=== PATIENT | female | born 1945 | race Caucasian/White ===

== ENCOUNTER 2016-11-02 04:07 | Inpatient (IN) ==
[2016-11-02] MEDS ORDERED: HYDROcodone/CHLORPHENIRAMINE ER 5 ML UDCUP PO ONE ×2 (04:55→05:48)
[2016-11-02 05:19] LABS: Basophils % 0.3 % (0.0-0.8); Eosinophils # 0.5 10*3/uL (0.0-0.87); Eosinophils % 3.6 % (0.00-10.9); Hematocrit 40.7 VOL% (35.7-47.0); Immature Granulocytes % 0.5 %; Immature Granulocytes Absolute 0.06 #; Lymphocytes # 1.8 10*3/uL (1.4-4.0); Lymphocytes % 14.6 % (21.3-54.2); Mean Corpuscular HGB Conc 34.4 GM/DL (32-36); Mean Corpuscular Hemoglobin 30 PG (27-34); Mean Platelet Volume 10.4 FL (9.6-12.0); Monocytes # 1.5 10*3/uL (0.11-0.8); Monocytes % 12.1 % (1.7-12.7); Neutrophils # 8.6 10*3/uL (1.4-7.4); Neutrophils % 68.9 % (38.7-73.9); Platelet Count 306 T/CUMM (130-400); Red Blood Count 4.68 MC/CUMM (3.8-5.5); Red Cell Distribution Width 11.9 % (9.3-17.3); White Blood Count 12.5 T/CUMM (4-12)
[2016-11-02 05:35] LABS: Bilirubin,Total 0.4 MG/DL (0.2-1.0); Calcium 10.5 MG/DL (8.5-10.1); Osmolality,Calculated 283.4 MOS/KG (273-304); Potassium 3.8 MMOL/L (3.5-5.1); Total Protein 7.2 G/DL (6.4-8.3)
[2016-11-02] MEDS ORDERED: cefTRIAXone 1,000 MG in SODIUM CHLORIDE 0.9% 100 ML IV STA (05:43)
--- NOTE | 2016-11-02 05:45 | Emergency Department Note ---
IYogesh Gwan, am scribing for, and in the presence of, Chula Bright DO 04:55 . IDeangelo Debra, DO, personally performed the services described in this documentation, ascribed by Marcello Zuñiga in my presence, and it is both accurate and complete [id number] . Arrival - Arrival Chief Complaint: Psychiatric Stated Complaint: not able to sleep ED Nursing Triage Note: pt states that she has had uri symptoms since thu. came to er thursday and was diagnosed with pneumonia and prescribed levaquin. pt states that she has not slept for 3-4 nights. pt states that she was wanting to hurt herself last night. states "i kept thinking about people" pt denies having a suicide plan. pt states that she has had suicidal ideations before when she was taking actos. Mode of Arrival: Wheelchair Limitations: No Limitations Source: Patient, Old Records Reviewed, RN Notes Reviewed - History of Present Illness HPI Narrative: Patient is a 71 y/o female who presents to the ED for further evaluation of inability to sleep. Patient confirmed that she was last seen in ED 2 days ago and was dx with pneumonia and prescribed Levaquin. She continued to note that she has not been to sleep in 3-4 nights. Patient then stated that she had suicidal ideation last night and that she "keeps thinking about people". She denies having a suicidal plan. She then said that this has happened before in the past when she took Levaquin. No other problems/complaints reported in ED. Onset (ago): day(s) Consistency: constant Severity: moderate Date of Last Menstrual Period: hysterectomy Allergies/Adverse Reactions: Allergies Allergy/AdvReac Type Severity Reaction Status Date / Time adhesive Allergy Redness of Verified 11/20/15 07:11 Skin lorazepam [From Ativan] Allergy ANAPHYLAXIS Verified 11/20/15 07:11 Shrimp Allergy Diarrhea Verified 11/20/15 07:11 pioglitazone [From Actos] AdvReac Unknown/Unable Verified 11/02/16 04:22 to obtain Home Medications: Home Medications Medication Instructions Recorded Confirmed Type Aspirin [Ecotrin] 81 mg PO DAILY 11/15/15 11/02/16 History Azelastine HCl [Azelastine 0.15% 1 spray BOTH NARES BID 11/15/15 11/02/16 History Nasal [place]] Carvedilol [Coreg] 25 mg PO BID 11/15/15 11/02/16 History Cholecalciferol (Vitamin D3) 2,000 unit PO DAILY 11/15/15 11/02/16 History [Vitamin D3] Dorzolamide/Timolol Oph Soln 1 drop BOTH EYES BID 11/15/15 11/02/16 History [Cosopt] Furosemide Tab [Lasix Tab] 80 mg PO BID 11/15/15 11/02/16 History HYDROcodone/ACETAMIN 10-325 [[place] 1 tablet PO Q6H PRN 11/15/15 11/02/16 History 10-325] Insulin Aspart Prot/Asp 70/30 50 unit SUBCUT BID W/MEALS 11/15/15 11/02/16 History [NovoLOG Mix 70/30] Isosorbide Mononitrate [Isosorbide 60 mg PO DAILY 11/15/15 11/02/16 History Mononitrate ER] Nitroglycerin Sl Tab [Nitrostat] 0.4 mg SL Q5M PRN 11/15/15 11/02/16 History Omeprazole [Prilosec] 20 mg PO BID 11/15/15 11/02/16 History Potassium Chloride [Klor-Con] 20 meq PO DAILY 11/15/15 11/02/16 History Pravastatin Sodium 80 mg PO BEDTIME 11/15/15 11/02/16 History Levofloxacin Tab [Levaquin Tab] 750 mg PO DAILY #5 tablet 10/31/16 11/02/16 Rx Losartan [Cozaar] 25 mg PO DAILY 11/02/16 11/02/16 History Review of System - Review of System 12 point system: reviewed and no additional remarkable complaints except as stated - Review of System Constitutional: Present: other (unable tp sleep ). Absent: chills, fever Eyes: Absent: discharge Head/Ears/Nose/Throat: Absent: earache Respiratory: Absent: cough Cardiovascular: Absent: chest pain Gastrointestinal: Absent: abdominal pain, nausea, vomiting, diarrhea Genitourinary female: Absent: dysuria Musculoskeletal: Absent: arm pain, back pain, leg pain, neck pain Skin: Absent: rash, lesions Neurological: Absent: headache, weakness Psychiatric: Present: as per HPI, suicidal thoughts Medical,Surgical,& Family Hx - Medical History Cardio: History of: CHF, CAD, Hypertension, [place], Pacemaker (ICD) Neurology: No history of: Seizures Endocrine: History of: Diabetes Mellitus (IDDM) Gastrointestinal: History of: GERD - Surgical History Cardiac Surgeries: Sugical HX of: Cardiac Catheterization (stents x's 2) Reproductive Surgeries: Surgical HX of;: Hysterectomy - Social History Smoking Status: Never smoker Frequency of Alcohol Use: None Type of Drug Use: None Exam Vital Signs: Vital Signs Temperature 98.6 F 11/02/16 04:12 Pulse Rate 84 11/02/16 04:26 Respiratory Rate 18 11/02/16 04:26 Blood Pressure 153/74 11/02/16 04:26 O2 Sat by Pulse Oximetry 96 11/02/16 04:12 - General General appearance: alert, in no apparent distress - Head Head exam: Present: atraumatic, normocephalic - Eye Eye exam: Present: normal appearance, PERRL, EOMI - ENT ENT exam: Present: normal oropharynx, mucous membranes moist, TM's normal bilaterally, normal external ear exam - Expanded ENT Exam Throat exam: Present: tonsillar erythema - Neck Neck exam: Present: full ROM, trachea midline. Absent: tenderness - Chest Chest inspection: Present: symmetric chest wall rise. Absent: tenderness - Respiratory Respiratory exam: Present: rhonchi (bilateral ), wheezes (mild ) - Cardiovascular Cardiovascular exam: Present: regular rate, normal rhythm, normal heart sounds. Absent: murmur, rubs - Abdominal Exam Abdominal exam: Present: soft, normal bowel sounds. Absent: distention, tenderness - Extremities Exam Extremities exam: Present: full ROM. Absent: tenderness - Back Exam Back exam: Present: full ROM. Absent: tenderness - Neurological Exam Neurological exam: Present: alert, oriented X3, CN II-XII intact, motor sensory deficit - Psychiatric Psychiatric exam: Present: suicidal ideation - Skin Skin exam: Present: warm, dry, intact, normal color Course Course Narrative: spoke with Dr Moore. who will admit pt for pneumonia, failed outpt therapy. Results - Labs CBC & BMP: 11/02/16 04:25 11/02/16 04:25 Disposition Clinical Impression: Pneumonia Case discussed with: patient Disposition: Still a Patient Condition: Stable Time of Disposition: 05:44
[2016-11-02] MEDS ORDERED: cefTRIAXone 1,000 MG VIAL ONE (05:48)
[2016-11-02] MEDS ORDERED: DEXTROSE 50% 25 GM/50 ML VIAL IV PRN (07:20)
[2016-11-02] MEDS ORDERED: GLUCAGON 1 MG VIAL IM PRN (07:20)
[2016-11-02] MEDS ORDERED: ACETAMINOPHEN 325 MG TABLET PO PRN (07:20)
[2016-11-02] MEDS ORDERED: NITROGLYCERIN SL 0.4 MG TABLET SL PRN (07:27)
--- NOTE | 2016-11-02 07:37 | Hospitalist History & Physical ---
<Charli Cabralric - Last Filed: 11/02/16 08:38> Assessment and Plan - Time spent with patient Time spent with patient: Greater than 30 minutes (1) Pneumonia Status: Acute Assessment and plan: Patient presented to the ED 2 nights ago and failed outpatient CAP therapy on levaquin. Patient reports adverse reaction to levaquin including inability to sleep and suicidal ideation. Patient has been switched to IV Rocephin in the ED. We will admit patient to monitored bed and continue IV Rocephin. Repeat CXR in 24 hours. Repeat CBP, BMP with Mg in AM. Current Visit: Yes (2) Hypertension Status: Acute Assessment and plan: Patient is followed by Dr. Felix Fermin. We will continue her home meds while inpatient. Current Visit: Yes (3) Congestive heart failure Status: Acute Assessment and plan: Patient is followed by Dr. Felix Fermin and has an ICD placed. There are no hospital records available showing an estimated EF. Patient is not in fluid overload. Currently takes Lorsartan and Coreg and Lasix for management. We will continue home meds while here. Consult cardiology has necessary. Current Visit: Yes (4) Diabetes mellitus Status: Acute Assessment and plan: Serum glucose is 151. Continue home oral medications. Patient states that she has had better results since switching to Novolin 70/30 from NovoLOG. We will continue home meds with sliding scale protocol. Accu-cheks ACHS. Current Visit: Yes History of Present Illness Chief complaint: pneumonia History of present illness: Ms. Dacosta is a 71 year old white female with a past medical history significant for hypertension, congestive heart failure, diabetes mellitus, cardiomyopathy with ICD placement who presents to the ED this morning for further evaluation of pneumonia. The patient reports that she was usually diagnosed with pneumonia 2 weeks ago here at [facility] and was subsequently treated as an outpatient with Levaquin. Patient reports that she has been unable to sleep and having suicidal ideation since starting this medication. She reports that she stopped taking the medicine last night as she was "totally wired". She tells me that she first began feeling ill Thursday with cough productive of green sputum. She is still coughing--though less frequently--but reports that the sputum is now a "shape hand greenish/yellow". She admits to productive cough, wheezing and SOB. She denies headache, chest pain, palpitations, abdominal pain, nausea/vomiting, change in bowel habits (pt reports that she has IBS). Lab work is significant for: WBC 12.5, BUN 19, glucose 151. Case has been discussed with Dr. Reece, admitting physician, and the patient will be admitted to the hospital medicine service for further evaluation and management of her pneumonia. She is a full code. Home medications have been reviewed and reconciled. Home Medications Medication Instructions Recorded Confirmed Type Aspirin [Ecotrin] 81 mg PO DAILY 11/15/15 11/02/16 History Azelastine HCl [Azelastine 0.15% 1 spray BOTH NARES BID 11/15/15 11/02/16 History Nasal [place]] Carvedilol [Coreg] 25 mg PO BID 11/15/15 11/02/16 History Cholecalciferol (Vitamin D3) 2,000 unit PO DAILY 11/15/15 11/02/16 History [Vitamin D3] Dorzolamide/Timolol Oph Soln 1 drop BOTH EYES BID 11/15/15 11/02/16 History [Cosopt] Furosemide Tab [Lasix Tab] 80 mg PO BID 11/15/15 11/02/16 History HYDROcodone/ACETAMIN 10-325 [[place] 1 tablet PO Q6H PRN 11/15/15 11/02/16 History 10-325] Insulin Aspart Prot/Asp 70/30 50 unit SUBCUT BID W/MEALS 11/15/15 11/02/16 History [NovoLOG Mix 70/30] Isosorbide Mononitrate [Isosorbide 60 mg PO DAILY 11/15/15 11/02/16 History Mononitrate ER] Nitroglycerin Sl Tab [Nitrostat] 0.4 mg SL Q5M PRN 11/15/15 11/02/16 History Omeprazole [Prilosec] 20 mg PO BID 11/15/15 11/02/16 History Potassium Chloride [Klor-Con] 20 meq PO DAILY 11/15/15 11/02/16 History Pravastatin Sodium 80 mg PO BEDTIME 11/15/15 11/02/16 History Losartan [Cozaar] 25 mg PO DAILY 11/02/16 11/02/16 History tiZANidine [Zanaflex] 2 mg PO BID 11/02/16 11/02/16 History Allergies Allergy/AdvReac Type Severity Reaction Status Date / Time adhesive Allergy Redness of Verified 11/20/15 07:11 Skin lorazepam [From Ativan] Allergy ANAPHYLAXIS Verified 11/20/15 07:11 Shrimp Allergy Diarrhea Verified 11/20/15 07:11 pioglitazone [From Actos] AdvReac Unknown/Unable Verified 11/02/16 04:22 to obtain Medical,Surgical,& Family Hx - Medical History Cardio: History of: CHF, CAD, Hypertension, [place], Pacemaker (ICD) Neurology: No history of: Seizures Endocrine: History of: Diabetes Mellitus (IDDM) Gastrointestinal: History of: GERD - Surgical History Cardiac Surgeries: Sugical HX of: Cardiac Catheterization (stents x's 2) Reproductive Surgeries: Surgical HX of;: Hysterectomy - Family History Family History: Reports;: Family Heart Disease, Family Hypertension - Social History Smoking Status: Never smoker Frequency of Alcohol Use: None Type of Drug Use: None Marital Status: Lives With:: Alone Functional capacity: independent ambulation - Constitutional Constitutional: Present: headache(s), weakness. 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 Absent: ear pain Nose, mouth and throat: Absent: headache(s) - Cardiovascular Cardiovascular: Present: dyspnea, dyspnea on exertion, orthopnea. Absent: chest pain at rest, diaphoresis, edema - Respiratory Respiratory: Present: cough, dyspnea, dyspnea on exertion, wheezing, change in phlegm color (yellow/green). Absent: hemoptysis, pain on inspiration - Gastrointestinal Gastrointestinal: Absent: abdominal pain, change in bowel habits (patient notes that she has IBS), constipation, diarrhea, melena, nausea, vomiting - Musculoskeletal Musculoskeletal: Present: arthralgias, muscle cramps, muscle weakness - Neurological Neurological: Present: numbness, syncope. Absent: abnormal gait, abnormal speech, confusion - Psychiatric Psychiatric: Absent: anxiety, confusion, depression - Endocrine Endocrine: Absent: cold intolerance, fatigue, heat intolerance - Hematologic/Lymphatic Hematologic/Lymphatic: Absent: easy bleeding, easy bruising Exam - Constitutional Vitals: Period Temp Pulse Resp BP Sys/Gan Pulse Ox Last 24 Hr 98.6 F 84-88 17-20 153-168/63-74 96 Exam: General appearance: obese, no acute distress - Head Head exam: Present: normocephalic, atraumatic - Eye Eye exam: Present: EOMI. Absent: conjunctival injection, nystagmus Pupils: Present: EMILIA, normal accommodation - ENT ENT exam: Present: normal exam, normal external ear exam - Neck Neck exam: Present: normal inspection. Absent: lymphadenopathy, tenderness, thyromegaly - Respiratory Respiratory exam: Present: decreased breath sounds bilaterally, rhonchi, expiratory wheezing. Absent: rales, egophony - Cardiovascular Cardiovascular exam: Present: regular rate and rhythm. Absent: carotid bruit, gallop, rubs - GI/Abdominal GI/Abdominal exam: Present: normal bowel sounds. Absent: ascites, distended, mass - Extremities Exam Extremities exam: Present: normal inspection, normal capillary refill. Absent: edema - Back Exam Back exam: Absent: CVA tenderness (L), CVA tenderness (R) - Neurological Exam Neurological exam: Present: alert, oriented X3 - Psychiatric Psychiatric exam: Present: normal affect, normal mood - Skin Skin exam: Present: normal color, warm, dry Results - Labs CBC & BMP: 11/02/16 04:25 11/02/16 04:25 Lab Results: I have reviewed the past 24 hour labs - Diagnostic Findings Procedure: Chest x-ray: image reviewed by me, report reviewed by me <Isabel Reece - Last Filed: 11/02/16 13:28> History of Present Illness History of present illness: Patient seen and examined independently of ANASTASIA Cabral, agree with assessment and plan as documented. Recently diagnosed with pneumonia, started on levofloxacin. Reports not being able to sleep since that time due to the medications. Patient still with a cough. Will treat pneumonia with rocephin and azithromycin. Exam - Constitutional Vitals: Period Temp Pulse Resp BP Sys/Gan Pulse Ox Last 24 Hr 97.8 F-98.6 F 71-88 17-20 137-168/63-94 92-98 Results - Labs CBC & BMP: 11/02/16 04:25 11/02/16 04:25
--- NOTE | 2016-11-02 07:59 | XRay Report ---
Portable chest. Indication: Cough and shortness of breath. The heart is mildly enlarged. Cardiac hardware appears to be intact. There is calcific plaque present within the aortic knob. The pulmonary vasculature is normal. Mild atelectasis persists at the left lung base. There has been clearing of the basilar infiltrates. No pneumothorax. No pleural effusion. Stable osseous structures. Impression: Interval improvement. Mild left basilar atelectasis persists. PROCEDURE INTERPRETED AT [facility] DEPARTMENT OF RADIOLOGY Final Report Signed by: Dr. Luba Bess
[2016-11-02] MEDS ORDERED: FUROSEMIDE 80 MG TABLET PO SCH (09:00)
[2016-11-02] MEDS ORDERED: AZITHROMYCIN INJ 500 MG in SODIUM CHLORIDE 0.9% 250 ML IV ONE (09:30)
[2016-11-02] MEDS: INSULIN REGULAR 100 UNIT/ML SUBCUT SCH ×4 (10:15→21:32)
[2016-11-02] MEDS: CHOLECALCIFEROL 1,000 UNIT TABLET PO SCH (10:16)
[2016-11-02] MEDS: ISOSORBIDE MONONITRATE 60 MG TABLET PO SCH (10:16)
[2016-11-02] MEDS: PANTOPRAZOLE 40 MG TABLET PO SCH ×2 (10:16→21:33)
[2016-11-02] MEDS: LOSARTAN 25 MG TABLET PO SCH (10:17)
[2016-11-02] MEDS: ASPIRIN EC 81 MG TABLET PO SCH (10:17)
[2016-11-02] MEDS: CARVEDILOL 25 MG TABLET PO SCH ×2 (10:17→21:32)
[2016-11-02] MEDS: cefTRIAXone 1,000 MG in SODIUM CHLORIDE 0.9% 100 ML IV SCH (10:18)
[2016-11-02] MEDS: POTASSIUM CHLORIDE 20 MEQ PACK PO SCH (10:29)
[2016-11-02] MEDS ORDERED: traZODone 50 MG TABLET PO PRN (13:28)
[2016-11-02] MEDS: guaiFENesin 200 MG/10 ML UDCUP PO PRN ×2 (17:34→23:24)
[2016-11-02] MEDS: FUROSEMIDE 80 MG TABLET PO SCH (17:36)
[2016-11-02] MEDS: PRAVASTATIN 40 MG TABLET PO SCH (21:32)
[2016-11-03 05:26] LABS: Basophils % 0.3 % (0.0-0.8); Eosinophils # 0.4 10*3/uL (0.0-0.87); Hematocrit 37.4 VOL% (35.7-47.0); Hemoglobin 12.5 GM/DL (12.0-16.0); Immature Granulocytes % 0.5 %; Immature Granulocytes Absolute 0.05 #; Lymphocytes # 2.3 10*3/uL (1.4-4.0); Mean Corpuscular HGB Conc 33.4 GM/DL (32-36); Mean Corpuscular Hemoglobin 30 PG (27-34); Mean Corpuscular Volume 89.7 FL (87-102); Mean Platelet Volume 10.1 FL (9.6-12.0); Monocytes # 1.3 10*3/uL (0.11-0.8); Monocytes % 13.5 % (1.7-12.7); Neutrophils # 5.4 10*3/uL (1.4-7.4); Neutrophils % 57.7 % (38.7-73.9); Platelet Count 277 T/CUMM (130-400); Red Blood Count 4.17 MC/CUMM (3.8-5.5); Red Cell Distribution Width 11.9 % (9.3-17.3); White Blood Count 9.4 T/CUMM (4-12)
[2016-11-03 05:40] LABS: Calcium 10.3 MG/DL (8.5-10.1); Magnesium 2.3 MG/DL (1.8-2.4); Osmolality,Calculated 286.1 MOS/KG (273-304); Potassium 3.8 MMOL/L (3.5-5.1)
[2016-11-03] MEDS: cefTRIAXone 1,000 MG in SODIUM CHLORIDE 0.9% 100 ML IV SCH (06:44)
[2016-11-03] MEDS: FUROSEMIDE 80 MG TABLET PO SCH ×2 (08:55→17:03)
[2016-11-03] MEDS: POTASSIUM CHLORIDE 20 MEQ PACK PO SCH (08:55)
[2016-11-03] MEDS: ASPIRIN EC 81 MG TABLET PO SCH (08:56)
[2016-11-03] MEDS: PANTOPRAZOLE 40 MG TABLET PO SCH ×2 (08:56→20:30)
[2016-11-03] MEDS: CARVEDILOL 25 MG TABLET PO SCH ×2 (08:56→20:30)
[2016-11-03] MEDS: CHOLECALCIFEROL 1,000 UNIT TABLET PO SCH (08:56)
[2016-11-03] MEDS: LOSARTAN 25 MG TABLET PO SCH (08:56)
[2016-11-03] MEDS: INSULIN REGULAR 100 UNIT/ML SUBCUT SCH ×4 (08:56→20:29)
[2016-11-03] MEDS: ISOSORBIDE MONONITRATE 60 MG TABLET PO SCH (08:56)
[2016-11-03] MEDS: AZITHROMYCIN INJ 250 MG in SODIUM CHLORIDE 0.9% 250 ML IV SCH (10:37)
--- NOTE | 2016-11-03 14:33 | Hospitalist Progress Note ---
Assessment and Plan (1) Pneumonia Status: Acute Assessment and plan: Continue rocephin and azithromycin Breathing treatments prn Current Visit: Yes (2) Hypertension Status: Acute Current Visit: Yes (3) Congestive heart failure Status: Acute Current Visit: Yes (4) Diabetes mellitus Status: Acute Assessment and plan: FSG elevated Restart home insulin regimen Current Visit: Yes Hospitalist: Subjective Interval history: No acute events overnight. Patient slept better last night. Still complains of some difficulty breathing. Exam - Constitutional Vitals: Period Temp Pulse Resp BP Sys/Gan Pulse Ox Last 24 Hr 97.7 F-98.8 F 72-90 13-20 114-153/50-76 94-97 General appearance: normal weight - Head Head exam: Present: normocephalic, atraumatic - Eye Eye exam: Present: EOMI Pupils: Present: EMILIA - ENT ENT exam: Present: normal exam - Neck Neck exam: Present: normal inspection - Respiratory Respiratory exam: Present: clear to auscultation bilaterally. Absent: rhonchi, wheezes - Cardiovascular Cardiovascular exam: Present: regular rate and rhythm - GI/Abdominal GI/Abdominal exam: Present: normal bowel sounds, soft. Absent: tenderness, rebound - Extremities Exam Extremities exam: Present: normal inspection - Back Exam Back exam: Present: normal inspection - Neurological Exam Neurological exam: Present: alert, oriented X3 - Psychiatric Psychiatric exam: Present: normal affect, normal mood - Skin Skin exam: Present: warm, intact Results - Labs CBC & BMP: 11/03/16 04:15 11/03/16 04:15
[2016-11-03] MEDS: INSULIN ASPART PROTAMINE/ASPART 70/30 100 UNIT/ML SUBCUT SCH (17:04)
[2016-11-03] MEDS: PRAVASTATIN 40 MG TABLET PO SCH (20:30)
[2016-11-04 08:00] VITALS: BP 157/71
[2016-11-04] MEDS: cefTRIAXone 1,000 MG in SODIUM CHLORIDE 0.9% 100 ML IV SCH (09:14)
[2016-11-04] MEDS: POTASSIUM CHLORIDE 20 MEQ PACK PO SCH (09:15)
[2016-11-04] MEDS: CARVEDILOL 25 MG TABLET PO SCH (09:15)
[2016-11-04] MEDS: CHOLECALCIFEROL 1,000 UNIT TABLET PO SCH (09:15)
[2016-11-04] MEDS: ASPIRIN EC 81 MG TABLET PO SCH (09:15)
[2016-11-04] MEDS: PANTOPRAZOLE 40 MG TABLET PO SCH (09:15)
[2016-11-04] MEDS: FUROSEMIDE 80 MG TABLET PO SCH (09:15)
[2016-11-04] MEDS: ISOSORBIDE MONONITRATE 60 MG TABLET PO SCH (09:15)
[2016-11-04] MEDS: LOSARTAN 25 MG TABLET PO SCH (09:36)
[2016-11-04] MEDS: INSULIN REGULAR 100 UNIT/ML SUBCUT SCH ×2 (09:37→11:46)
[2016-11-04] MEDS: INSULIN ASPART PROTAMINE/ASPART 70/30 100 UNIT/ML SUBCUT SCH (09:38)
[2016-11-04] MEDS: AZITHROMYCIN INJ 250 MG in SODIUM CHLORIDE 0.9% 250 ML IV SCH (09:42)
--- NOTE | 2016-11-04 10:37 | Discharge Summary ---
Hospital Course - Hospital Course Hospital Course: Ms. Dacosta is a 71 year old white female with a past medical history significant for hypertension, congestive heart failure, diabetes mellitus, cardiomyopathy with ICD placement who presented to the ED for further evaluation of pneumonia. The patient reported that she was diagnosed with pneumonia [address] [facility] and was subsequently treated as an outpatient with Levaquin. Patient reported that she has been unable to sleep and having suicidal ideation since starting this medication. She reported that she stopped taking the medicine the previous night as she was "totally wired". She reported that she first began feeling ill Thursday with cough productive of green sputum. She is still coughing--though less frequently- -but reported that the sputum is now a "supervisor wool shearing greenish/yellow". She admits to productive cough, wheezing and SOB. She was admitted to the hospitalist service with community acquired pneumonia. She was started on rocephin and azithromycin. She has continued to improve. She has now reached maximal benefit of inpatient stay and will be discharged home. - Time spent with patient Time with patient DS: Less than 30 minutes (25) Diagnosis - Discharge Diagnosis (1) Pneumonia Status: Resolved (2) Hypertension Status: Chronic (3) Congestive heart failure Status: Chronic (4) Diabetes mellitus Status: Chronic Discharge Plan - Discharge Data Disposition: Disch To Home/Self Care Condition at Discharge: Stable Discharge Diet: diabetic diet, heart healthy Activity: increase activity as tolerated Hygiene: no restrictions Weight Bearing at Discharge: weight bear as tolerated Contact your physician if you experience:: fever over 101, Shortness of breath - Discharge Medications New Azithromycin Tab [Zithromax Tab] 250 mg PO DAILY #4 tablet Continue Omeprazole [Prilosec] 20 mg PO BID Pravastatin Sodium 80 mg PO BEDTIME Potassium Chloride [Klor-Con] 20 meq PO DAILY Nitroglycerin Sl Tab [Nitrostat] 0.4 mg SL Q5M PRN PRN Reason: Chest Pain Isosorbide Mononitrate [Isosorbide Mononitrate ER] 60 mg PO DAILY Insulin Aspart Prot/Asp 70/30 [NovoLOG Mix 70/30] 50 unit SUBCUT BID W/MEALS HYDROcodone/ACETAMIN 10-325 [[place] 10-325] 1 tablet PO Q6H PRN PRN Reason: Pain Furosemide Tab [Lasix Tab] 80 mg PO BID Dorzolamide/Timolol Oph Soln [Cosopt] 1 drop BOTH EYES BID Cholecalciferol (Vitamin D3) [Vitamin D3] 2,000 unit PO DAILY Carvedilol [Coreg] 25 mg PO BID Azelastine HCl [Azelastine 0.15% Nasal [place]] 1 spray BOTH NARES BID Aspirin [Ecotrin] 81 mg PO DAILY Losartan [Cozaar] 25 mg PO DAILY tiZANidine [Zanaflex] 2 mg PO BID - Follow Up or Referral - Forms/Instructions Exam - Constitutional Vitals: Period Temp Pulse Resp BP Sys/Gan Pulse Ox Last 24 Hr 97.7 F-98.3 F 73-82 18-20 114-157/50-82 94-96 General appearance: over weight - Head Head exam: Present: normocephalic, atraumatic - Eye Eye exam: Present: EOMI Pupils: Present: EMILIA - ENT ENT exam: Present: normal exam - Neck Neck exam: Present: normal inspection - Respiratory Respiratory exam: Present: clear to auscultation bilaterally. Absent: wheezes - Cardiovascular Cardiovascular exam: Present: regular rate and rhythm - GI/Abdominal GI/Abdominal exam: Present: normal bowel sounds, soft. Absent: tenderness, rebound - Extremities Exam Extremities exam: Present: normal inspection - Back Exam Back exam: Present: normal inspection - Neurological Exam Neurological exam: Present: alert, oriented X3 - Psychiatric Psychiatric exam: Present: normal affect, normal mood - Skin Skin exam: Present: warm, intact Discharge Results Procedures and tests throughout hospitalization: Pending Orders 11/02/16 05:25 Blood Culture Stat Labs on day of discharge: Labs from last 24 hours 11/04/16 11/04/16 11/03/16 07:33 04:01 23:39 POC Glucose 306 H 187 H 64 L 11/03/16 11/03/16 11/03/16 20:29 18:19 16:23 POC Glucose 222 H 408 H 449 H 11/03/16 11/03/16 14:20 11:11 POC Glucose 499 H 487 H Preliminary micro results at discharge 11/02/16 05:25 Blood Culture - Preliminary Blood No growth at 1 day 11/02/16 04:25 Blood Culture - Preliminary Blood No growth at 1 day DS: Provider Date of admission: 11/02/16 06:50 Primary care physician: Burton Liriano DO Attending physician on admission: Isabel Reece MD Discharging clinician: Isabel Reece MD
== END 2016-11-04 13:00 | disposition home or self-care (01) | DRG 194 ==
LOC: N.ED 04:07 → N.EDINP 07:22 → N.2E 07:52
PROVIDERS: ADMIT Internal Medicine; ATTEND Internal Medicine

== ENCOUNTER 2017-04-20 18:32 | Inpatient (IN) ==
[2017-04-20] MEDS ORDERED: ONDANSETRON 4 MG/2 ML VIAL IV STA (19:23)
[2017-04-20] MEDS ORDERED: MECLIZINE 25 MG TABLET PO STA (19:23)
[2017-04-20 21:02] LABS: Basophils % 0.4 % (0.0-0.8); Eosinophils % 1.6 % (0.00-10.9); Hematocrit 38.5 VOL% (35.7-47.0); Hemoglobin 13.2 GM/DL (12.0-16.0); Immature Granulocytes % 0.6 %; Lymphocytes % 21.2 % (21.3-54.2); Mean Corpuscular HGB Conc 34.3 GM/DL (32-36); Mean Corpuscular Hemoglobin 30 PG (27-34); Mean Corpuscular Volume 88.5 FL (87-102); Mean Platelet Volume 9.6 FL (9.6-12.0); Monocytes % 9.5 % (1.7-12.7); Neutrophils # 4.7 10*3/uL (1.4-7.4); Neutrophils % 66.7 % (38.7-73.9); Platelet Count 249 T/CUMM (130-400); Red Blood Count 4.35 MC/CUMM (3.8-5.5); Red Cell Distribution Width 12.8 % (9.3-17.3)
[2017-04-20 21:03] LABS: Eosinophils # 0.1 10*3/uL (0.0-0.87); Immature Granulocytes Absolute 0.04 #; Lymphocytes # 1.5 10*3/uL (1.4-4.0); Monocytes # 0.7 10*3/uL (0.11-0.8)
[2017-04-20 21:11] LABS: INR 0.9
[2017-04-20] MEDS ORDERED: MECLIZINE 25 MG TABLET ONE (21:14)
[2017-04-20] MEDS ORDERED: ONDANSETRON 4 MG/2 ML VIAL ONE (21:14)
[2017-04-20 21:29] LABS: Alanine Aminotransferase 25 U/L (13-56); Alkaline Phosphatase 118 U/L (45-117); Aspartate Amino Transferase 21 U/L (0-37); Bilirubin,Total < 0.39 MG/DL (0.2-1.0); Blood Urea Nitrogen 14 MG/DL (7-18); Calcium 9.8 MG/DL (8.5-10.1); Glucose 126 MG/DL (74-106); Magnesium 2.3 MG/DL (1.8-2.4); Osmolality,Calculated 288.8 MOS/KG (273-304); Potassium 3.9 MMOL/L (3.5-5.1); Sodium 144 MMOL/L (136-145); Total Protein 6.2 G/DL (6.4-8.3); Troponin I Only < 0.015 NG/ML (0.00-0.045)
[2017-04-20 21:58] LABS: Apearance,Urine Slightly Hazy (Clear); Bacteria,Urine Moderate /HPF (Few); Bilirubin,Urine Negative (Negative); Blood, Urine Small mg/dL (Negative); Glucose,Urine (UA) 50 mg/dL (Negative); Hyaline Casts,Urine 6 /LPF (0-3); Ketones,Urine Negative (Negative); Mucus,Urine Occasional /LPF (Occasional); Nitrite,Urine Negative (Negative); Protein,Urine Negative; RBC,Urine 1 /HPF (0-4); Squamous Epithelial Cell,Urine Occasional /HPF (0-10); Urine Color Yellow (Yellow); Urine Urobilinogen < 2.0 EU/DL (0.2-1.0); WBC,Urine 1 /HPF (0-6)
[2017-04-20 22:04] LABS: Barbiturates Screen,Urine Negative (Negative); Benzodiazepines Screen,Urine Negative (Negative); Cannabinoid Screen,Urine Negative (Negative); Opiate Screen,Urine Positive (Negative); Phencyclidine Screen,Urine Negative (Negative)
[2017-04-21] MEDS ORDERED: GLUCAGON 1 MG VIAL IM PRN (00:29)
[2017-04-21] MEDS ORDERED: ACETAMINOPHEN 325 MG TABLET PO PRN (00:29)
[2017-04-21] MEDS ORDERED: DEXTROSE 50% 25 GM/50 ML VIAL IV PRN (00:29)
[2017-04-21] MEDS ORDERED: ONDANSETRON 4 MG/2 ML VIAL IV PRN (00:29)
[2017-04-21] MEDS ORDERED: PROMETHAZINE 25 MG/1 ML VIAL IM PRN (00:29)
[2017-04-21] MEDS ORDERED: NITROGLYCERIN SL 0.4 MG TABLET SL PRN (00:29)
[2017-04-21 06:51] LABS: Calcium 9.3 MG/DL (8.5-10.1); Magnesium 2.2 MG/DL (1.8-2.4); Osmolality,Calculated 290.8 MOS/KG (273-304); Risk Ratio 4.08; VLDL CHOLESTEROL 44.2 MG/DL
[2017-04-21] MEDS: DORZOLAMIDE/TIMOLOL OPH SOLN 10 ML BOTTLE BOTH EYES SCH ×3 (08:58→21:09)
[2017-04-21] MEDS: AZELASTINE NASAL 137 MCG/SPRAY 30 ML BOTTLE BOTH NARES SCH ×2 (08:59→21:10)
[2017-04-21] MEDS: CHOLECALCIFEROL 1,000 UNIT TABLET PO SCH (09:01)
[2017-04-21] MEDS: CARVEDILOL 25 MG TABLET PO SCH ×2 (09:02→21:08)
[2017-04-21] MEDS: LORATADINE 10 MG TABLET PO SCH (09:02)
[2017-04-21] MEDS: LOSARTAN 50 MG TABLET PO SCH (09:02)
[2017-04-21] MEDS: ISOSORBIDE MONONITRATE 60 MG TABLET PO SCH (09:02)
[2017-04-21] MEDS: PANTOPRAZOLE 40 MG TABLET PO SCH (09:03)
[2017-04-21] MEDS: ASPIRIN EC 81 MG TABLET PO SCH (09:03)
[2017-04-21] MEDS: ENOXAPARIN 40 MG/0.4 ML SYRINGE SUBCUT SCH (09:04)
[2017-04-21] MEDS ORDERED: MECLIZINE 25 MG TABLET PO PRN (09:13)
[2017-04-21] MEDS: GABAPENTIN 100 MG CAPSULE PO SCH ×3 (10:53→21:22)
[2017-04-21] MEDS ORDERED: INSULIN REGULAR 100 UNIT/ML ONE (11:30)
[2017-04-21] MEDS: INSULIN REGULAR 100 UNIT/ML SUBCUT SCH ×3 (11:31→21:08)
[2017-04-21] MEDS: INSULIN NPH/REGULAR 70/30 100 UNIT/ML SUBCUT SCH (16:14)
[2017-04-21] MEDS: PRAVASTATIN 40 MG TABLET PO SCH (21:08)
[2017-04-22] MEDS: ENOXAPARIN 40 MG/0.4 ML SYRINGE SUBCUT SCH (09:04)
[2017-04-22] MEDS: INSULIN NPH/REGULAR 70/30 100 UNIT/ML SUBCUT SCH ×2 (09:06→16:38)
[2017-04-22] MEDS: INSULIN REGULAR 100 UNIT/ML SUBCUT SCH ×4 (09:06→20:25)
[2017-04-22] MEDS: CHOLECALCIFEROL 1,000 UNIT TABLET PO SCH (09:07)
[2017-04-22] MEDS: guaiFENesin 200 MG/10 ML UDCUP PO PRN ×2 (09:07→13:57)
[2017-04-22] MEDS: LOSARTAN 50 MG TABLET PO SCH (09:07)
[2017-04-22] MEDS: ASPIRIN EC 81 MG TABLET PO SCH (09:08)
[2017-04-22] MEDS: ISOSORBIDE MONONITRATE 60 MG TABLET PO SCH (09:08)
[2017-04-22] MEDS: PANTOPRAZOLE 40 MG TABLET PO SCH (09:08)
[2017-04-22] MEDS: CARVEDILOL 25 MG TABLET PO SCH ×2 (09:09→20:18)
[2017-04-22] MEDS: AZELASTINE NASAL 137 MCG/SPRAY 30 ML BOTTLE BOTH NARES SCH ×2 (09:09→20:10)
[2017-04-22] MEDS: LORATADINE 10 MG TABLET PO SCH (09:09)
[2017-04-22] MEDS: DORZOLAMIDE/TIMOLOL OPH SOLN 10 ML BOTTLE BOTH EYES SCH ×3 (09:12→20:10)
[2017-04-22] MEDS: GABAPENTIN 100 MG CAPSULE PO SCH ×2 (09:12→20:19)
[2017-04-22] MEDS: DOXYCYCLINE HYCLATE 100 MG CAPSULE PO SCH (20:18)
[2017-04-22] MEDS: BENZONATATE 100 MG CAPSULE PO SCH (20:24)
[2017-04-22] MEDS: PRAVASTATIN 40 MG TABLET PO SCH (20:24)
[2017-04-23] MEDS: INSULIN NPH/REGULAR 70/30 100 UNIT/ML SUBCUT SCH ×2 (08:36→16:40)
[2017-04-23] MEDS: ENOXAPARIN 40 MG/0.4 ML SYRINGE SUBCUT SCH (08:38)
[2017-04-23] MEDS: DORZOLAMIDE/TIMOLOL OPH SOLN 10 ML BOTTLE BOTH EYES SCH ×3 (08:39→20:53)
[2017-04-23] MEDS: AZELASTINE NASAL 137 MCG/SPRAY 30 ML BOTTLE BOTH NARES SCH ×2 (08:40→20:55)
[2017-04-23] MEDS: PANTOPRAZOLE 40 MG TABLET PO SCH (08:41)
[2017-04-23] MEDS: INSULIN REGULAR 100 UNIT/ML SUBCUT SCH ×4 (08:41→20:19)
[2017-04-23] MEDS: GABAPENTIN 100 MG CAPSULE PO SCH ×2 (08:43→20:55)
[2017-04-23] MEDS: CHOLECALCIFEROL 1,000 UNIT TABLET PO SCH (08:43)
[2017-04-23] MEDS: BENZONATATE 100 MG CAPSULE PO SCH ×3 (08:43→20:54)
[2017-04-23] MEDS: LORATADINE 10 MG TABLET PO SCH (08:44)
[2017-04-23] MEDS: LOSARTAN 50 MG TABLET PO SCH (08:45)
[2017-04-23] MEDS: ISOSORBIDE MONONITRATE 60 MG TABLET PO SCH (08:45)
[2017-04-23] MEDS: CARVEDILOL 25 MG TABLET PO SCH ×2 (08:45→20:55)
[2017-04-23] MEDS: DOXYCYCLINE HYCLATE 100 MG CAPSULE PO SCH ×2 (08:45→20:54)
[2017-04-23] MEDS: ASPIRIN EC 81 MG TABLET PO SCH (08:46)
[2017-04-23] MEDS: MECLIZINE 25 MG TABLET PO SCH ×3 (12:15→20:54)
[2017-04-23] MEDS: PRAVASTATIN 40 MG TABLET PO SCH (20:55)
[2017-04-24] MEDS: INSULIN REGULAR 100 UNIT/ML SUBCUT SCH ×2 (08:30→12:32)
[2017-04-24] MEDS: INSULIN NPH/REGULAR 70/30 100 UNIT/ML SUBCUT SCH (08:30)
[2017-04-24] MEDS: MECLIZINE 25 MG TABLET PO SCH ×2 (08:33→12:31)
[2017-04-24] MEDS: LORATADINE 10 MG TABLET PO SCH (08:34)
[2017-04-24] MEDS: ASPIRIN EC 81 MG TABLET PO SCH (08:34)
[2017-04-24] MEDS: LOSARTAN 50 MG TABLET PO SCH (08:34)
[2017-04-24] MEDS: CARVEDILOL 25 MG TABLET PO SCH (08:34)
[2017-04-24] MEDS: ISOSORBIDE MONONITRATE 60 MG TABLET PO SCH (08:35)
[2017-04-24] MEDS: ENOXAPARIN 40 MG/0.4 ML SYRINGE SUBCUT SCH (08:35)
[2017-04-24] MEDS: GABAPENTIN 100 MG CAPSULE PO SCH (08:36)
[2017-04-24] MEDS: PANTOPRAZOLE 40 MG TABLET PO SCH (08:36)
[2017-04-24] MEDS: DOXYCYCLINE HYCLATE 100 MG CAPSULE PO SCH (08:37)
[2017-04-24] MEDS: BENZONATATE 100 MG CAPSULE PO SCH ×2 (08:37→15:00)
[2017-04-24] MEDS: CHOLECALCIFEROL 1,000 UNIT TABLET PO SCH (08:37)
[2017-04-24] MEDS: AZELASTINE NASAL 137 MCG/SPRAY 30 ML BOTTLE BOTH NARES SCH (08:40)
[2017-04-24] MEDS: DORZOLAMIDE/TIMOLOL OPH SOLN 10 ML BOTTLE BOTH EYES SCH ×2 (08:40→15:00)
[2017-04-24 11:52] VITALS: BP 147/69
== END 2017-04-24 15:50 | disposition swing bed (61) | DRG 149 ==
LOC: EDBD → EDUNIT# → N.ED 18:32 → SUATTDRO 23:41 → N.EDINP 23:41 → N.3E 04-21 00:01
PROVIDERS: ATTEND Hospitalist